=== PATIENT | female | born 1995 | race Caucasian/White ===

== ENCOUNTER 2019-08-27 09:52 | Emergency (ER) | payer SELFPAY ==
[~2019-08-27] VITALS: Ht 170.2 cm; Wt 61.7 kg
[2019-08-27 09:53] VITALS: BP 99/62
--- NOTE | 2019-08-27 09:56 | NUR ---
ED Nurse Note: pt walked in to ER from home due to sore throat for 2 days after she came back from camping on Monday night. pt aao x4 and ambulatory. calm and cooperative. skin clean and intact. no fever noted. no cardiac or pulmonary distress noted at this time. ERMD at tent.
[2019-08-27] MEDS ORDERED: IBUPROFEN600 M1 ORAL (10:03)
[2019-08-27] MEDS ORDERED: AMOXICILLIN500 MG ORAL (10:03)
--- NOTE | 2019-08-27 10:06 | Emergency Room Report ---
History of Present Illness General Chief Complaint: Sore Throat Source: Patient Present Illness HPI 23-year-old female presents with sore throat and reported fever. Symptoms present for the past 2 days. She denied cough to me. But has had painful swallowing that is 10 out of 10. No shortness of breath no sick contacts. Patient is an active smoker. Allergies: Coded Allergies: No Known Allergies (Unverified , 08/27/19) COVID-19 Screening Contact w/high risk pt: No Recent Travel to affected area: No Experienced COVID-19 symptoms?: Yes COVID-19 symptoms experienced: Flu-Like Symptoms Patient History Last Menstrual Period: 2 weeks ago Now: No Reviewed Nursing Documentation: PMH: Agreed; PSxH: Agreed Nursing Documentation-PMH Past Medical History: No Stated History Review of Systems All Other Systems: negative except mentioned in HPI Physical Exam Vital Signs Date Time Temp Pulse Resp B/P (MAP) Pulse Ox O2 Delivery O2 Flow Rate FiO2 08/27/19 09:43 98.4 91 16 99/62 (74) 96 Room Air Sp02 EP Interpretation: reviewed, normal General Appearance: well appearing, no apparent distress Head: normocephalic, atraumatic Eyes: bilateral eye PERRL, bilateral eye EOMI ENT: hearing grossly normal, moist mucus membranes, other - Bilateral tonsillar exudates with tonsillar swelling noted, uvula midline Neck: full range of motion, supple, other - Tender anterior cervical adenopathy noted Respiratory: lungs clear, normal breath sounds, no rhonchi, no respiratory distress, no retraction, no wheezing Cardiovascular #1: normal peripheral pulses, regular rate, rhythm, no murmur Gastrointestinal: non tender, soft, non-distended, no guarding Neurologic: alert, oriented x3, no focal defects Skin: normal color, warm/dry Medical Decision Making Diagnostic Impression: Primary Impression: Strep pharyngitis ER Course MDM: Patient presented with sore throat, reported fever. She denied cough to me. Tonsillar exudates noted on exam. Suspect strep pharyngitis. Low suspicion for retropharyngeal abscess. Patient nontoxic-appearing. Will be discharged with oral antibiotic and analgesics, recommended follow-up with PMD, smoking cessation. Patient stable for discharge Last Vital Signs Date Time Temp Pulse Resp B/P (MAP) Pulse Ox O2 Delivery O2 Flow Rate FiO2 08/27/19 09:53 98.4 91 16 99/62 96 Room Air Disposition: HOME, SELF-CARE Condition: Stable Scripts Ibuprofen* (MOTRIN*) 600 Mg Tablet 600 MG ORAL Q6H PRN for For Pain, #30 TAB 0 Refills Prov: John Paul Yin M.D. 08/27/19 Amoxicillin* (AMOXIL*) 500 Mg Capsule 500 MG ORAL BID, #20 CAP Prov: John Paul Yin M.D. 08/27/19 Referrals: [facility] Patient Instructions: Pharyngitis, [id number] Additional Instructions: Patient is instructed to follow-up with her primary care doctor, primary care clinic or [facility] in 1 to 2 days. Patient instructed to return for any worsening symptoms or concerns. Disclaimer: Please note that this report is being documented using [employer] technology. This can lead to erroneous entry secondary to incorrect interpretation by the dictating instrument. John Paul Yin M.D. August 27, 2019 10:06
[2019-08-27 10:09] VITALS: BP 99/62
--- NOTE | 2019-08-27 10:09 | NUR ---
ED Nurse Note: Pt cleared by health care Provider for discharge. DC instructions/prescription was given and explained to pt and verbalized understanding of teachings. All medical deviecs such as ID band removed. Pt is AAO x4, ambulatory and left with all personal belongings.
== END 2019-08-27 10:10 | disposition home or self-care (01) ==
LOC: EDBD 09:52 → EMR 10:03
DX: J02.0 Streptococcal pharyngitis (principal)
CPT/HCPCS: 99281

== ENCOUNTER 2019-10-14 09:04 | Emergency (ER) | payer SELFPAY ==
[~2019-10-14] VITALS: Ht 162.6 cm; Wt 59.0 kg
[~2019-10-14 09:04] MED LIST: AMOXICILLIN500 MG ORAL; IBUPROFEN600 M1 ORAL
[2019-10-14] MEDS ORDERED: PERMETHRIN60 GM TOPIC (09:21)
[2019-10-14 09:23] VITALS: BP 105/69
--- NOTE | 2019-10-14 09:24 | NUR ---
ED Nurse Note: Patient walked in to ER c/o rash over the left fingers, left thigh with itching; exposure to scabies in Aug, 2019;
--- NOTE | 2019-10-14 09:26 | Emergency Room Report ---
History of Present Illness General Chief Complaint: Skin Rash/Abscess Source: Patient Present Illness HPI Disclaimer: Please note that this report is being documented using [employer] technology. This can lead to erroneous entry secondary to incorrect interpretation by the dictating instrument. HPI: 24-year-old female presents for evaluation of itchy rash. Her new mate was diagnosed with scabies 1 month ago before returning to [facility]. The patient noted few days of itching between the finger webbing with some small papules. No skin breakdown, no bruising, no fever, no chills. Lives with her boyfriend but no other close contacts reported. Allergies: Coded Allergies: No Known Allergies (Unverified , 08/27/19) COVID-19 Screening Contact w/high risk pt: No Recent Travel to affected area: No Experienced COVID-19 symptoms?: Yes COVID-19 symptoms experienced: Cough COVID-19 Testing performed [employer]: Yes COVID-19 Screening: Negative COVID-19 COVID-19 Testing Source: throat Patient History Last Menstrual Period: 10/10/19 Nursing Documentation-[facility] Past Medical History: No Stated History Review of Systems All Other Systems: negative except mentioned in HPI Physical Exam Vital Signs Date Time Temp Pulse Resp B/P (MAP) Pulse Ox O2 Delivery O2 Flow Rate FiO2 10/14/19 09:16 98.1 69 14 105/69 (81) 99 Room Air General: Awake and alert, no acute distress HEENT: NC/AT. EOMI. Resp: Normal work of breathing Skin: Intact. No abrasions or lacerations noted. There are tiny papules in between the finger webbing mildly erythematous but no edema, no weeping, no fluctuance, no purulence. Scattered over the upper extremities as well. MSK: Normal tone and bulk. Moving all extremities. No obvious deformity. Neuro: Awake and alert. Mentating appropriately Medical Decision Making Diagnostic Impression: Primary Impression: Scabies exposure ER Course 24-year-old female presents for evaluation of rash. Likely scabies given her recent close contacts. Will treat with permethrin cream. Instructed proper linen handling and isolation. Will prescribe an additional 2 Lopressor and for her boyfriend as well. Instructed to return with new or worsening symptoms. She understands and agrees to treatment plan. Last Vital Signs Date Time Temp Pulse Resp B/P (MAP) Pulse Ox O2 Delivery O2 Flow Rate FiO2 10/14/19 09:23 98.1 14 105/69 99 Room Air 10/14/19 09:16 69 Disposition: HOME, SELF-CARE Condition: Stable Scripts Permethrin* (ELIMITE*) 60 Gm Cream..g. 2 APPLIC TOPIC ONCE, #2 TUBE 0 Refills Apply cream from head to toe; leave on for 8-14 hours before washing off with water Prov: John Sanchez MD 10/14/19 Referrals: On [facility] Ivana Wray [facility]. [facility] Patient Instructions: Contact Precautions, Pruritus Additional Instructions: Permethrin Cream 5%: Thoroughly massage cream (30 g for average adult) from head to soles of feet; leave on for 8 to 14 hours before removing (shower or bath). Repeat in 14 days if still showing symptoms. Wash all linens/clothes in hot water or bag bulky items and keep sealed for 2wks John Sanchez MD Oct 14, 2019 09:26
[2019-10-14 09:29] VITALS: BP 105/69
== END 2019-10-14 09:30 | disposition home or self-care (01) ==
LOC: EMR 09:27
DX: B86 Scabies (principal)
CPT/HCPCS: 99281